=== PATIENT | male | born 1960 | race Caucasian/White ===

== ENCOUNTER 2016-12-04 00:19 | Emergency (ER) | payer OTHER ==
[~2016-12-04] VITALS: Ht 175.3 cm; Wt 90.7 kg
[~2016-12-04 00:19] MED LIST: ATENOLOL50 MG PO; B-121000 MC2 PO; CHLORDIAZEPOXID25 MG PO; CIPRO500 MG PO; DOXYCYCLINE HY100 MG PO; FERROUS SULFAT325 MG PO; FLAGYL500 MG PO; METOPROLOL TART25 MG PO; NICOTINE PATCH1 EAC1 TD; OXYCODONE HCL5 MG PO; PROPRANOLOL HCL20 MG PO; RANITIDINE HCL150 M1 PO; ZOFRAN ODT4 MG SL
[2016-12-04] MEDS ORDERED: CHLORDIAZEPOXID25 MG PO (10:38)
== END 2016-12-04 10:57 | disposition home or self-care (01) ==
LOC: ED 00:19
DX: F33.9 Major depressive disorder, recurrent, unspecified (principal); I10 Essential (primary) hypertension; F20.9 Schizophrenia, unspecified; F10.229 Alcohol dependence with intoxication, unspecified; Y90.8 Blood alcohol level of 240 mg/100 ml or more; F17.200 Nicotine dependence, unspecified, uncomplicated; G89.29 Other chronic pain; M54.9 Dorsalgia, unspecified; M25.519 Pain in unspecified shoulder; R00.0 Tachycardia, unspecified; R45.851 Suicidal ideations; G40.909 Epilepsy, unspecified, not intractable, without status epilepticus; Z86.19 Personal history of other infectious and parasitic diseases; Z88.0 Allergy status to penicillin; Z88.5 Allergy status to narcotic agent; Z88.8 Allergy status to other drugs, medicaments and biological substances
CPT/HCPCS: 36415; 80053; 80176; 81001; 85025; 99283; G0480; Q0163